=== PATIENT | male | born 1945 | race Caucasian/White ===

== ENCOUNTER 2020-12-07 09:04 | Emergency (ER) | payer OTHER ==
[~2020-12-07] VITALS: Ht 182.9 cm; Wt 108.9 kg
[~2020-12-07 09:04] MED LIST: ACETAMINOPHEN325 M1 PO; AKWA TEARS EYE15 ML OTIC; ANTACID DOUBLE360 M1 PO; ASPIRIN EC325 M1 PO; COLACE 100 MG100 MG PO; LIPITOR20 MG PO; LISINOPRIL10 MG PO; NITROGLYCERIN0.4 MG; NOHOMEMEDICATIONS; SIMVASTATIN20 MG PO
[2020-12-07] MEDS ORDERED: LOPRESSOR50 MG PO (09:12)
[2020-12-07] MEDS ORDERED: PRINIVIL20 M1 PO (09:12)
[2020-12-07] MEDS ORDERED: ASA81BEC PO (09:13)
[2020-12-07] MEDS ORDERED: ISOSORBIDE DINI30 MG PO (09:13)
[2020-12-07] MEDS ORDERED: LIPITOR40 MG PO (09:13)
[2020-12-07 10:23] LABS: ABSOLUTE NEUTROPHILS 6.5 thou/uL (1.4-8.2); BASOPHILS 0.7 % (0.0-2.0); EOSINOPHILS 0.8 % (0.0-3.0); HEMATOCRIT 50.1 % (42.0-52.0); HEMOGLOBIN 16.6 gm/dL (14.0-18.0); LYMPHOCYTES 16.1 % (24.0-44.0); MCH 30.1 pg (26.0-34.0); MCV 91.2 fL (80.0-100.0); MONOCYTES 8.3 % (1.0-8.0); POLYS 74.1 % (36.0-66.0); RDW 15.4 % (10.5-14.5); WBC 8.8 thou/uL (4.0-11.0)
[2020-12-07 10:33] LABS: ANION GAP 8 mmol/L (7-16); BUN 16 mg/dL (7-18); CALCIUM 9.8 mg/dL (8.5-10.1); CHLORIDE 104 mmol/L (98-107); CO2 28 mmol/L (21-32); CREATININE 1.6 mg/dL (0.7-1.3); GLUCOSE 97 mg/dL (74-106); POTASSIUM 4.6 mmol/L (3.5-5.1); SODIUM 140 mmol/L (136-145)
[2020-12-07 10:41] LABS: ALBUMIN 3.8 g/dL (3.4-5.0); SGOT 21 U/L (15-37); SGPT 33 U/L (30-65); TOTAL BILIRUBIN 1.8 mg/dL (0.2-1.0); TOTAL PROTEIN 8.1 g/dL (6.4-8.2); TROPONIN-I <0.06 ng/mL (<0.06)
[2020-12-07 12:05] LABS: PLATELET COUNT 150 thou/uL (150-400)
[2020-12-07 12:21] LABS: URINE BILIRUBIN NEGATIVE (Negative); URINE BLOOD TRACE (Negative); URINE CLARITY CLEAR; URINE COLOR YELLOW; URINE GLUCOSE-RANDOM* NEGATIVE (Negative); URINE KETONES NEGATIVE (Negative); URINE LEUKOCYTES-REFLEX NEGATIVE (Negative); URINE NITRITE-REFLEX NEGATIVE (Negative); URINE PROTEIN (DIPSTICK) NEGATIVE (Negative); URINE SPECIFIC GRAVITY <= 1.005 (1.005-1.035)
[2020-12-07] MEDS ORDERED: ZANAFLEX4 MG PO (12:22)
[2020-12-07] MEDS ORDERED: MOBIC7.5 MG PO (12:22)
--- NOTE | 2020-12-07 12:25 | EKG ---
[place] [address] [facility] [place] [address] ELECTROCARDIOGRAM REPORT Name: NURA RICHARDSON [facility]: [facility] [id number] Admission: 12/07/20 Attend Phys: Discharge: Date of : 45 Report #: [id number] 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
[2020-12-07 12:55] VITALS: BP 118/62
== END 2020-12-07 12:55 | disposition home or self-care (01) ==
LOC: ER 09:04
PROVIDERS: Emergency Medicine
DX: I70.8 Atherosclerosis of other arteries (principal); M48.061 Spinal stenosis, lumbar region without neurogenic claudication; M54.16 Radiculopathy, lumbar region; Z79.82 Long term (current) use of aspirin; Z79.899 Other long term (current) drug therapy; Z86.73 Personal history of transient ischemic attack (TIA), and cerebral infarction without residual deficits